=== PATIENT | male | born 1955 | race Caucasian/White ===

== ENCOUNTER 2020-07-21 10:02 | Emergency (ER) | payer MEDICAID ==
--- OUTSIDE RECORDS SUMMARY | 2020-07-21 10:20 | XMS REPORT ---
:1955 Author Organization eClinicalWorks Care Team Providers Name Role Phone Meg Ramirez Provider Role Unavailable Allergies, Adverse Reactions, Alerts Substance Reaction Event Type N.K.D.A. 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 Active unspecified part of left lower leg with unspecified severity Problem Type 2 diabetes mellitus with foot E11.621 Active ulcer Problem Unsteady gait R26.81 Active Problem Primary insomnia F51.01 Active Problem Non-pressure chronic ulcer of L97.509 Active other part of unspecified foot with unspecified severity Assessment 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 Assessment 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 Active unspecified part of left lower leg with unspecified severity Problem Gastroesophageal reflux disease K21.9 Active without esophagitis Assessment Skin tear of right lower leg S81.811A Active without complication, initial encounter Problem 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 Assessment Type 2 diabetes mellitus with E11.51 Active diabetic peripheral angiopathy without gangrene, without long-term current use of insulin Problem Amputation of left lower extremity Z89.512 Active below knee Medications Medication Code Code Instructions Start End Status Dosage System Date Date Clonazepam [facility] 83041066140 1MG Orally PRN Active 1 - 2 anxiety daily tablet Nateglinide ND 54049232571 60 MG Orally Active 1 t ablet Three times a before day meals True Metrix [facility] 14443594916 - Active USE 1 Blood Glucose STRIP TO Test CHECK GLUCOSE TWICE DAILY GlyBURIDE [facility] 83855080628 5 MG Orally tid Active 1 tablet with meal Yvonneyze XR [facility] 86931172641 5-500 MG Orally Active take 1 Once a day tablet by mouth in the evening with meals Amoxicillin-Pot [facility] 15007182205 1000-62.5 MG March 06, Active 1 tablet Clavulanate ER Orally every 12 2020 hrs Actos [facility] 29543796666 30 MG Orally Active 1 table t Once a day Results No Known Results Summary Purpose eClinicalWorks Submission
--- OUTSIDE RECORDS SUMMARY | 2020-07-21 10:20 | XMS REPORT | Continuity of Care Document ---
:[address] [facility] t Address [address] [place] [address] Care Team Providers Name Role Phone Unavailable Unavailable Unavailable Problems This patient has no known problems. Allergies, Adverse Reactions, Alerts This patient has no known allergies or adverse reactions. Medications Ordered Filled Start Stop Current Ordering Indication Dosage Frequency Signature Comments Components Source Medication Medication Date Date Medication? Clinician (SIG) Name Name Clonazepam Clonazepam Yes Meg 1 - [address] [place] tablet [facility] Kombiglyze Kombiglyze Yes Meg take [address] [facility] XR XR [place] tablet by [facility] - mouth in [facility] the l evening Outpati with meals ent Clinics True Metrix True Metrix Yes Meg USE [address] [facility] Blood Blood [place] STRIP TO [facility] - Glucose Glucose CHECK [facility] Test Test GLUCOSE l TWICE Outpati DAILY ent Clinics Nateglinide Nateglinide Yes Meg [address] [facility] [place] before [facility] - meals [facility] GlyBURIDE GlyBURIDE Yes Meg [address] [facility] [place] with meal kes - [facility] Pioglitazon Pioglitazon Yes Meg Take [address] [facility] e HCl e HCl [place] tablet by [facility] mouth [facility] Procedures This patient has no known procedures. Encounters Start End Encounter Admission Attending Care Care Encounter Source Date/Time Date/Time Type Type Clinicians Facility Department ID 2020-06-30 2020-06-30 Outpatient [facility] [id number] 2020-06-27 2020-06-[address] [facility] [id number] [facility] 2020-06-13 2020-06-13 [facility] [id number] [facility] 11[facility] 11:00:00 [facility] [employer] [address] [facility] Medicine l Medicine Outpati ent Clinics 2020-06-10 2020-06-10 [facility] [id number] [address] 09[facility]00 09:00:00 [facility] Medicine Outpati ent Clinics 2020-06-10 2020-06-10 [facility] [id number] 09[facility]00[facility]00 09:00:00 [facility] Medicine Outpati ent Clinics 2020-05-27 2020-05-27 [facility] [id number] [address] 08:40:00 08:40:00 t [facility] Medicine Outpati ent Clinics 2020-05-02 2020-05-02 [facility] [id number] [address] 15:19:00 15:19:00 t [facility] Medicine Outpati ent Clinics 2020-05-01 2020-05-01 [facility] [id number] 14:00:00 14:00:00 t [facility] Medicine l Medicine Outpati ent Clinics 2020-03-06 2020-03-06 [facility] [id number] [address] 14:00:00 14:00:00 t [facility] Medicine Outpati ent Clinics 2020-02-06 2020-02-06 [facility] [id number] [address] 18:58:00 18:58:00 t [facility] Medicine Outpati ent Clinics 2020-01-31 2020-01-31 [facility] [id number] 13:00:00 13:00:00 t [facility] Medicine Outpati ent Clinics 2020-01-22 2020-01-22 [facility] [id number] 10[facility]20:00 10:20:00 t [facility] Medicine Outpati ent Clinics 2020-01-14 2020-01-14 [facility] [id number] 13:00:00 13:00:00 t [facility] Medicine Outpati ent Clinics 2019-12-31 2019-12-31 [facility] [id number] 13[facility]20:00 13:20:00 t [facility] Medicine Outpati ent Clinics 2019-12-24 2019-12-24 [facility] [id number] 14:40:00 14:40:00 [facility] Medicine Outpati ent Clinics 2019-11-07 2019-11-07 [facility] [id number] 09:27:00 09:27:00 t [facility] Medicine Medicine Outpati ent Clinics 2019-10-23 2019-10-23 [facility] [id number] 10[facility]20:00 10:20:00 t [facility] Medicine Outpati ent Clinics 2019-10-10 2019-10-10 [facility] [id number] 17[facility]03:00 17:03:00 t [facility] Medicine Outpati ent Clinics 2019-10-01 2019-10-01 [facility] [id number] 11:15:00 11:15:00 t [facility] Medicine Outpati ent Clinics 2019-09-13 2019-09-13 [facility] [id number] 10:01:00 10:01:00 [facility] Medicine Outpati ent Clinics 2019-07-23 2019-07-23 [facility] [id number] 10:20:00 10:20:00 t [facility] Medicine Medicine Outpati ent Clinics 2019-07-16 2019-07-16 [facility] [id number] 08:04:00 08:04:00 t [facility] Medicine Outpati ent Clinics 2019-07-10 2019-07-10 [facility] [id number] 13:39:[facility] 13:39:[address] [place] [address] [facility] Medicine l Medicine Outpati ent Clinics 2019-04-23 2019-04-23 [facility] [id number] 09:00:00 09:00:00 t [facility] Medicine Outpati ent Clinics 2019-03-14 2019-03-14 [facility] [id number] 10:20:00 10:20:00 t [facility] Medicine Outpati ent Clinics 2019-02-05 2019-02-05 [facility] [id number] 09:58:00 09:58:00 t [facility] Medicine Medicine Outpati ent Clinics 2019-01-29 2019-01-29 [facility] [id number] 11:31:00 11:31:00 t [facility] Medicine Outpati ent Clinics 2019-01-10 2019-01-10 [facility] [id number] 15[facility]00:00 15:00:00 t [facility] Medicine Medicine Outpati ent Clinics 2019-01-02 2019-01-02 [facility] [id number] 09[facility]40:00 09:40:00 t [facility] Medicine Outpati ent Clinics 2018-12-18 2018-12-18 [facility] [id number] 17[facility]51:00 17:51:00 t [facility] Medicine Outpati ent Clinics 2018-12-18 2018-12-18 [facility] [id number] 10:44:00 10:44:00 t [facility] Medicine Outpati ent Clinics 2018-12-12 2018-12-12 [facility] [id number] [facility] 16:00:00 16:00:00 t [facility] Medicine Outpati ent Clinics 2018-11-28 2018-11-28 [facility] [id number] 16:05:00 16:05:00 t [facility] Medicine Medicine Outpati ent Clinics 2018-11-21 2018-11-21 [facility] [id number] 09:30:00 09:30:00 t [facility] Medicine Outpati ent Clinics 2018-10-24 2018-10-24 [facility] [id number] 09:30:00 09:30:00 t [facility] Medicine Outpati ent Clinics 2018-09-18 2018-09-18 [facility] [id number] 17:24:00 17:24:00 t [facility] Medicine Outpati ent Clinics 2018-09-18 2018-09-18 [facility] [id number] [facility] 17:20:00 17:20:00 t [facility] Medicine Medicine Outpati ent Clinics 2018-07-03 2018-07-03 [facility] [id number] [facility] 11:17:00 11:17:00 t [facility] Medicine Medicine Outpati ent Clinics 2018-06-29 2018-06-29 [facility] [id number] 12:13:00 12:13:00 t [facility] Medicine Outpati ent Clinics 2018-06-26 2018-06-26 [facility] [id number] [facility] 13:00:00 13:00:00 t [facility] Medicine Outpati ent Clinics 2018-05-17 2018-05-17 Outpatient Aida Braxton [id number] [facility] 09:56:00 09:56:00 [facility] ent [facility] 2018-04-11 2018-04-11 Outpatient Aida Braxton [id number] 11:00:00 11:00:00 [facility] ent Clinics Results This patient has no known results.
--- OUTSIDE RECORDS SUMMARY | 2020-07-21 10:21 | XMS REPORT ---
[...] part of unspecified foot with unspecified severity Problem Gastroesophageal reflux disease K21.9 Active without esophagitis Problem 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 Assessment Medicare annual wellness visit, Z00.00 Active subsequent Problem Amputation of left lower extremity Z89.512 Active below knee Medications Medication Code Code Instructions Start End Status Dosage System Date Date Nateglinide [facility] 14536009086 60 MG Orally Active 1 t ablet Three times a before day meals Kombiglyze XR ND 38802962301 5-500 MG Orally Active take 1 Once a day tablet by mouth in the evening with meals GlyBURIDE ND 10227606019 5 MG Orally tid Active 1 tablet with meal True Metrix [facility] 24453710283 - Active USE 1 ST RIP Blood Glucose TO CHECK Test GLUCOSE TWICE DAILY Clonazepam ND 78232066791 1MG Orally PRN Active 1 - 2 anxiety daily tablet Clindamycin HCl ND 12491292937 300 MG Orally Active 2 capsules every 8 hrs Pioglitazone HCl [facility] 16208682527 30 MG Active Judson e 1 tablet by mouth once daily Actos NDC 21613465139 30 MG Orally Active 1 table t Once a day Results No Known Results Summary Purpose eClinicalWorks Submission
--- OUTSIDE RECORDS SUMMARY | 2020-07-21 10:21 | XMS REPORT ---
:1955 Author Organization [facility] Address [address] [facility] [place] [address] Care Team Providers Name Role Phone James Unavailable [phone] PROBLEMS Type Condition ICD9-CM [id number] Onset Condition SNOMED Code Notes Code Code Dates Status Problem Gastroesophageal K21.9 Active 522666178 reflux disease without esophagitis Problem Amputation of left Z89.512 Active 073520487 lower extremity below knee Problem Other complications T87.89 Active 52817774 of amputation stump Problem Unsteady gait R26.81 Active 62301839 Problem Non-pressure L97.509 Active 463688714 chronic ulcer of other part of unspecified foot with unspecified severity Problem Primary insomnia F51.01 Active 4885857 Problem Chronic kidney N18.3 Active 935739466 disease, stage 3 (moderate) Problem Anxiety, F41.1 Active 91789176 generalized Problem Type 2 diabetes E11.22 Active 62229612 mellitus with diabetic chronic kidney disease Problem Mixed hearing loss H90.8 Active 09014978 Problem Type 2 diabetes E11.9 Active 718260500 mellitus without complications Problem Non-pressure L97.929 Active 28510314 chronic ulcer of unspecified part of left lower leg with unspecified severity Problem Type 2 diabetes E11.36 Active 00027099 mellitus with diabetic cataract, without long-term current use of insulin Problem Type 2 diabetes E11.65 Active 05081498 mellitus with hyperglycemia, without long-term current use of insulin ALLERGIES No Known Allergies ENCOUNTERS from 1955 to 2020-06-27 Encounter Location Date Provider Diagnosis [facility] [address] [facility] [address], [place] [address] IMMUNIZATIONS Vaccine Route Administration Date Status Flucelvax - multidose vial Unknown Jul 25, 2018 Rell ng Flucelvax - single dose syringe IM Intramuscular Jun 12, 2020 Administered Twinrix IM Intramuscular April 17, 2019 Administered Pneumovax (PPSV23) IM Intramuscular April 23, 2020 Administered Prevnar 13 -Pneumonia Vaccine IM Intramuscular April 17, 2019 A dministered SOCIAL HISTORY Tobacco Use: Social History Observation Description Date Details (start date - stop date) Never Smoker Sex Assigned At : Social History Observation Description Sex Assigned At Unknown PHQ9 Question Answer Notes Little interest or pleasure in doing things Not at all Feeling down, depressed, or hopeless Nearly every day Trouble falling or staying asleep or sleeping too much Not a t all Feeling tired or having little energy Not at all Poor appetite or overeating Not at all Feeling bad about yourself, or that you are a failure, or No t at all have let yourself or your family down Trouble concentrating on things, such as reading the Not at all newspaper or watching television Moving or speaking so slowly that other people could have No t at all noticed; or the opposite, being so fidgety or restless that you have been moving around a lot more than usual Total Score 3 Interpretation Minimal Depression Thoughts that you would be better off or of hurting Not at all yourself in some way Alcohol Screen Question Answer Notes Did you have a drink containing alcohol in the past year? No Points 0 Interpretation Negative Tobacco Use/Smoking Question Answer Notes Are you a never smoker REASON FOR REFERRAL No Information VITAL SIGNS No information MEDICATIONS Medication SIG (Take, Route, Frequency, Start Date End Date Status Duration) Nateglinide 60 MG 1 tablet before meals Orally Active Three times a day for 90 True Metrix Blood Glucose Test USE 1 STRIP TO CHECK GLUCOSE Active - TWICE DAILY for 25 Kombiglyze XR 5-500 MG take 1 tablet by mouth in Active the evening with meals Orally Once a day for 90 days GlyBURIDE 5 MG 1 tablet with meal Orally Active tid for 90 Clonazepam 1MG 1 - 2 tablet Orally PRN Ac tive anxiety daily for 30 Pioglitazone HCl 30 MG Take 1 tablet by mouth once Active daily for 90 PROCEDURES No Information RESULTS No Results REASON FOR VISIT Other MEDICAL (GENERAL) HISTORY Type Description Date Medical History Anxiety, generalized Medical History Mixed hearing loss Medical History Amputation of left lower extremity below knee Medical History Type 2 diabetes mellitus with foot ulcer Medical History Skin tear of right lower leg without com plication, initial encounter Surgical History Below knee amputation Left 2018 Surgical History Foot ulcer debridement on both feet 2016 -2016 Hospitalization History 1 month at [facility] for recovery of BKA. 2018 Goals Section No Information Health Concerns No Information MEDICAL EQUIPMENT No Information MENTAL STATUS No Information FUNCTIONAL STATUS No Information ASSESSMENTS No Information PLAN OF TREATMENT Next Appt Details Provider Name:Meg Ramirez, 2020-06-30 11 :20:00 AM, [address] [facility], [place], [address], Insurance Providers Payer Name Payer Payer Insured Patient Coverage Coverage Address Phone Name Relationship to Start Date End Date Insured [place] [phone] Keith Rosenberg [address] [facility] [address] MEDICAID [phone] Keith Rosenberg 2019 [id number] [address] [facility] [id number]
--- OUTSIDE RECORDS SUMMARY | 2020-07-21 10:21 | XMS REPORT ---
:[address] [facility] Address [address] [facility] [place] [address] Care Team Providers Name Role Phone James Unavailable [phone] PROBLEMS Type Condition ICD9-CM [id number] Onset Condition SNOMED Code Notes Code Code Dates Status Problem Other complications T87.89 Active 21138290 of amputation stump Problem Gastroesophageal K21.9 Active 568163785 reflux disease without esophagitis Problem Mixed hearing loss H90.8 Active 47605140 Problem Amputation of left Z89.512 Active 023177761 lower extremity below knee Problem Non-pressure L97.509 Active 859411943 chronic ulcer of other part of unspecified foot with unspecified severity Problem Primary insomnia F51.01 Active 1886429 Problem Type 2 diabetes E11.9 Active 471775376 mellitus without complications Problem Type 2 diabetes E11.65 Active 42173409 mellitus with hyperglycemia, without long-term current use of insulin Problem Unsteady gait R26.81 Active 63258397 Problem Abrasions of T07.XXXA Active 307929265 multiple sites Problem Anxiety, F41.1 Active 96170931 generalized Problem Non-pressure L97.929 Active 81898188 chronic ulcer of unspecified part of left lower leg with unspecified severity Problem Chronic kidney N18.3 Active 208768900 disease, stage 3 (moderate) Problem Type 2 diabetes E11.22 Active 14605041 mellitus with diabetic chronic kidney disease Problem Type 2 diabetes E11.36 Active 47132639 mellitus with diabetic cataract, without long-term current use of insulin ALLERGIES No Known Allergies ENCOUNTERS from 1955 to 2020-07-03 Encounter Location Date Provider Diagnosis [facility] [address] [facility] [address] Jun, Meg Ramirez Type 2 diabetes [facility] [place] mellitus [place] [address] hyperglycemia, without long-te rm current use of insulin E11.65 ; Amputation of l eft lower extremity below knee Z89. 512 and Abrasions o f multiple sites T07.XXXA IMMUNIZATIONS Vaccine Route Administration Date Status Flucelvax - multidose vial Unknown Jul 25, 2018 Pendi ng Flucelvax - single dose syringe IM [...] REASON FOR REFERRAL No Information VITAL SIGNS Height 73.5 in Jun, Weight 208.6 lbs Jun, Temperature 98.1 degrees Fahrenheit Jun, BMI 27.15 kg/m2 Jun, Oximetry 98 % Jun, Respiratory Rate 16 /min Jun, Blood pressure systolic 136 mm Hg Jun, Blood pressure diastolic 78 mm Hg Jun, MEDICATIONS Medication SIG (Take, Route, Start Date End Date Status Frequency, Duration) True Metrix Blood Glucose USE 1 STRIP TO CHECK Active Test - GLUCOSE TWICE DAILY for 25 Pioglitazone HCl 30 MG Take 1 tablet by mouth Active once daily for 90 Nateglinide 60 MG 1 tablet before meals A ctive Orally Three times a day for 90 GlyBURIDE 5 MG 1 tablet with meal Orally Active tid for 90 Mupirocin 2 % 1 application Externally Jun, Jul, Ac tive Three times a day for 5 day(s) Clonazepam 1MG 1 - 2 tablet Orally PRN Ac tive anxiety daily for 23 Kombiglyze XR 5-500 MG take 1 tablet by mouth in Active the evening with meals Orally Once a day for 90 days PROCEDURES No Information RESULTS Component Value Reference Range HEMOGLOBIN A1C Reviewed date:06/30/2020 12:07:09 Interpretation: Performing Lab: A1C 7.9 REASON FOR VISIT Wound (IN LOBBY) MEDICAL (GENERAL) HISTORY Type Description Date Medical History Anxiety, generalized Medical History Mixed hearing loss Medical History Amputation of left lower extremity below knee Medical History Type 2 diabetes mellitus with foot ulcer Medical History Skin tear of right lower leg without com plication, initial encounter Surgical History Below knee amputation Left 2018 Surgical History Foot ulcer debridement on both feet 2015 -2016 Hospitalization History 1 month at [facility] for recovery of BKA. 2018 Goals Section No Information Health Concerns No Information MEDICAL EQUIPMENT No Information MENTAL STATUS No Information FUNCTIONAL STATUS No Information ASSESSMENTS Encounter Date Diagnosis Notes Jun, Type 2 diabetes mellitus with hyperglyce [place], without long-term current use of insulin (ICD-10 - E11.65) Jun, Abrasions of multiple sites (ICD-10 - T0 7.XXXA) Jun, Amputation of left lower extremity below knee (ICD-10 - Z89.512) PLAN OF TREATMENT Medication Medication Name Sig Start Date Stop Date GlyBURIDE 5 MG 1 tablet with meal Orally tid for 90 Mupirocin 2 % 1 application Externally Three times a day 2019Jul, for 5 day(s) Nateglinide 60 MG 1 tablet before meals Orally Three times a day for 90 Treatment Notes Assessment Notes Clinical Notes Type 2 diabetes mellitus with meds as directedcheck glucose daily hyperglycemia, without long-term current use of insulin Amputation of left lower extremity call prosthesis [place] a gain about below knee ill fitting prosthesistry to wear sock under sleeve, Abrasions of multiple sites clean daily with soap and watera pply mupirocin oint to abrasions daily until abrasion gone Next Appt Details 3 Months Reason: Insurance Providers Payer Name Payer Payer Insured Patient Coverage Coverage Address Phone Name Relationship to Start Date End Date Insured [place] [phone] Keith Rosenberg [address] [facility] [address] MEDICAID [phone] Keith Rosenberg 2019 [id number] [facility] [id number]
--- OUTSIDE RECORDS SUMMARY | 2020-07-21 10:21 | XMS REPORT ---
:1955 Author Organization [employer] Care Team Providers Name Role Phone Meg Ramirez Provider Role Unavailable Allergies No Known Allergies Problems Problem Type Condition Code Onset Dates Condition Statu s Problem Type 2 diabetes mellitus with E11.51 Active diabetic peripheral angiopathy without gangrene, without long-term current use of insulin Problem Anxiety, generalized F41.1 Active Problem Mixed hearing loss H90.8 Active Problem Gastroesophageal reflux disease K21.9 Active without esophagitis Problem 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 Problem Amputation of left lower extremity Z89.512 Active below knee Problem Skin tear of right lower leg [...] part of unspecified foot with unspecified severity Medications No Known Medications Results No Known Results Summary Purpose [employer] Submission
--- OUTSIDE RECORDS SUMMARY | 2020-07-21 10:21 | XMS REPORT ---
:1955 Author Organization [employer] Care Team Providers Name Role Phone Meg Ramirez Provider Role Unavailable Allergies No Known Allergies Problems Problem Type Condition Code Onset Dates Condition Statu s Problem Anxiety, generalized F41.1 Active Problem Non-pressure chronic ulcer of other L97.509 Active part of unspecified foot with unspecified severity Problem Unsteady gait R26.81 Active Problem Gastroesophageal reflux disease K21.9 Active without esophagitis Problem 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 Problem Amputation of left lower extremity Z89.512 Active below knee Problem Mixed hearing loss H90.8 Active Problem Chronic kidney disease, stage 3 N18.3 Active (moderate) Problem Type 2 diabetes mellitus with E11.65 Active hyperglycemia, without long-term current use of insulin Problem Type 2 diabetes mellitus with E11.22 Active diabetic chronic kidney disease Problem Type 2 diabetes mellitus without E11.9 Active complications Problem Primary insomnia F51.01 Active Problem Type 2 diabetes mellitus with E11.36 Active diabetic cataract, without long-term current use of insulin Problem 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
--- OUTSIDE RECORDS SUMMARY | 2020-07-21 10:21 | XMS REPORT ---
[...] complications of amputation T87.89 Active stump Assessment Abrasion, left lower leg, initial S80.812A Active encounter Problem Amputation of left lower extremity Z89.512 Active below knee Medications Medication Code Code Instructions Start End Status Dosage System Date Date Clindamycin HCl [facility] 12699400084 300 MG Orally Active 2 capsules every 8 hrs Pioglitazone HCl [facility] 58436863671 30 MG Active Judson e 1 tablet by mouth once daily Gly[place] ND 71167149337 5 MG Orally tid Active 1 tablet with meal Kombiglyze XR ND 32262678360 5-500 MG Orally Active take 1 Once a day tablet by mouth in the evening with meals Actos ND 60303197129 30 MG Orally Active 1 table t Once a day True Metrix [facility] 32717838766 - Active USE 1 ST RIP Blood Glucose TO CHECK Test GLUCOSE TWICE DAILY Clonazepam ND 89289983458 1MG Orally PRN Active 1 - 2 anxiety daily tablet Nateglinide [facility] 55576140909 60 MG Orally Active 1 t ablet Three times a before day meals Results No Known Results Summary Purpose [employer]ClinicalWorks Submission
--- OUTSIDE RECORDS SUMMARY | 2020-07-21 10:21 | XMS REPORT ---
[...] severity Problem Unsteady gait R26.81 Active Problem Chronic kidney disease, stage 3 [...] of left lower leg with unspecified severity Assessment Type 2 diabetes mellitus with E11.22 Active diabetic chronic kidney disease Assessment Type 2 diabetes mellitus with E11.36 Active diabetic cataract, without long-term current use of insulin Assessment Type 2 diabetes mellitus with E11.65 Active hyperglycemia, without long-term current use of insulin Assessment Chronic kidney disease, stage 3 N18.3 Active (moderate) Problem Gastroesophageal reflux disease K21.9 Active without esophagitis Problem 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 Assessment Amputation of left lower extremity Z89.512 Active below knee Problem Amputation of left lower extremity Z89.512 Active below knee Problem Mixed hearing loss H90.8 Active Medications Medication Code Code Instructions Start End Status Dosage System Date Date Pioglitazone HCl ND 85893378776 30 MG Active Judson e 1 tablet by mouth once daily Gly[place] ND 88514256212 5 MG Orally tid Active 1 tablet with meal Kombiglyze XR ND 42436726537 5-500 MG Orally Active take 1 Once a day tablet by mouth in the evening with meals True Metrix ND 39471593556 - Active USE 1 Blood Glucose STRIP TO Test CHECK GLUCOSE TWICE DAILY Nateglinide [facility] 54118163966 60 MG Orally Active 1 t ablet Three times a before day meals Clonazepam [facility] 76783778146 1MG Orally PRN Active 1 - 2 anxiety daily tablet Results No Known Results Summary Purpose [employer]ClinicalWorks Submission
[2020-07-21] MEDS ORDERED: NA CHLORIDE 0.9% 500 ML ONE ×3 (11:06→13:58)
[2020-07-21 11:07] LABS: Absolute Lymphocytes (CBC) 0.4 K/uL (0.7-4.9); Basophils % 0.2 % (0-1.3); Hematocrit 34.9 % (39.6-49.0); Lymphocytes % 4.3 % (15.3-44.8); MPV 9.3 fL (7.6-11.3); RBC Red Blood Cell Count 3.88 M/uL (4.33-5.43)
--- NOTE | 2020-07-21 11:38 | RAD REPORT ---
EXAM DESCRIPTION: CT - Abdomen Pelvis W Contrast - 07/21/2020 11:08 am CLINICAL HISTORY: Abdominal pain COMPARISON: none. TECHNIQUE: Computed axial tomography of the abdomen pelvis was obtained. 100 cc Isovue-300 was admin istered intravenously. Oral contrast was not requested which limits evaluation of bowel. All CT scans are performed using dose optimization technique as appropriate and may include automated exposure control or mA/KV adjustment according to patient size. FINDINGS: Some of images are degraded by motion artifact Mild fatty liver Spleen, pancreas, adrenal and kidneys appear unremarkable. There is no evidence of diverticulitis. Small densities the gallbladder probably stones. Gallbladder wall is not thickened Moderate amount of stool throughout the colon. Small to moderate hiatal hernia. Mild chronic appearin g left lower lobe opacities. Spondylosis involves lumbar spine resulting in spinal stenosis. Small bilateral inguinal hernias IMPRESSION: Probable cholelithiasis without evidence cholecystitis Moderate amount of stool throughout the colon
[2020-07-21 11:42] LABS: Albumin 3.3 g/dL (3.4-5.0); Bilirubin Direct 0.3 mg/dL (0-0.2); Bilirubin Total 0.7 mg/dL (0.2-1.0); Potassium 4.3 mmol/L (3.5-5.1); Protein, Total 7.8 g/dL (6.4-8.2)
[2020-07-21 11:48] LABS: Blood Morphology Comment NOT SEEN (NOT SEEN); Platelet Estimate ADEQ; White Blood Cell Scan OK (OK)
[2020-07-21] MEDS ORDERED: INSULIN -REGULAR HUMAN 50 UNIT/0.5 ML ML ONE ×2 (12:07→13:58)
[2020-07-21 12:10] LABS: Urine Blood NEGATIVE (NEG); Urine Glucose 3+ (NEG); Urine Protein NEGATIVE (NEG); Urine Specific Gravity <1.005 (1.005-1.030); Urine pH 5.5 (5.0-7.0)
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
[2020-07-21] MEDS ORDERED: ACETAMINOPHEN 325 MG TABLET ONE (15:16)
[2020-07-21 17:32] VITALS: TEMP 98.5
[2020-07-21 17:42] VITALS: O2SAT 100
[2020-07-21 17:43] VITALS: BP 145/93
== END 2020-07-21 15:37 | disposition home or self-care (01) ==
LOC: ER 10:02
DX: K80.20 Calculus of gallbladder without cholecystitis without obstruction (principal); E11.65 Type 2 diabetes mellitus with hyperglycemia; K59.00 Constipation, unspecified; J02.9 Acute pharyngitis, unspecified; I10 Essential (primary) hypertension; Z88.4 Allergy status to anesthetic agent
CPT/HCPCS: 87070; 85025; 80048; 36415; 82947 ×4; 82565; 80076; 87081; 81003; 83690; 87804 ×2; 74177; 99284; Q9967; J7040 ×3

== ENCOUNTER 2020-07-24 12:42 | Emergency (ER) | payer MEDICAID, OTHER ==
--- OUTSIDE RECORDS SUMMARY | 2020-07-24 14:42 | XMS REPORT | Continuity of Care Document ---
:1955 Author Organization [facility] t Address [address] [place] [address] Care Team Providers Name Role Phone Unavailable Unavailable Unavailable Problems This patient has no known problems. Allergies, Adverse Reactions, Alerts This patient has no known allergies or adverse reactions. Medications Ordered Filled Start Stop Current Ordering Indication Dosage Frequency Signature Comments Components Source Medication Medication Date Date Medication? Clinician (SIG) Name Name Clonazepam Clonazepam Yes Meg 1 - [address] [place] tablet [facility] Kombiglyze Kombiglyze Yes Meg take [address] [facility] XR XR [place] tablet by [facility] - mouth in [facility] the l evening Outpati with meals ent Clinics True Metrix True Metrix Yes Meg USE [address] [facility] Blood Blood [place] STRIP TO [facility] - Glucose Glucose CHECK [facility] Test Test GLUCOSE l TWICE Outpati DAILY ent Clinics Nateglinide Nateglinide Yes Meg [address] [facility] [place] before [facility] - meals [facility] l [facility] GlyBURIDE GlyBURIDE Yes Meg [address] [facility] [place] with meal kes - [facility] l [facility] Pioglitazon Pioglitazon Yes Meg Take [address] [facility] e HCl e HCl [place] [facility] Procedures This patient has no known procedures. Encounters Start End Encounter Admission Attending Care Care Encounter Source Date/Time Date/Time Type Type Clinicians Facility Department ID 2020-06-30 2020-06-[id number] 2020-06-27 2020-06-27 Outpatient [facility] [id number] [facility] 2020-06-13 2020-06-13 [facility] [id number] [facility] 11[facility] 11:00:[address] [facility] Medicine l Medicine Outpati ent Clinics 2020-06-10 2020-06-10 [facility] [id number] 09:00[facility]00 09:00:00 t [facility] Medicine Outpati ent Clinics 2020-06-10 2020-06-10 [facility] [id number] 09[facility]00:00 09:00:00 t [facility] Medicine Outpati ent Clinics 2020-05-27 2020-05-27 [facility] [id number] [facility] 08:40:00 08:40:00 t [facility] Medicine Outpati ent Clinics 2020-05-02 2020-05-02 [facility] [id number] [address] 15:19:00 15:19:00 t [facility] Medicine Outpati ent Clinics 2020-05-01 2020-05-01 [facility] [id number] 14[facility]00:00 14:00:00 t [facility] Medicine l Medicine Outpati ent Clinics 2020-03-06 2020-03-06 [facility] [id number] [facility] 14:00:00 14:00:00 t [facility] Medicine Outpati ent Clinics 2020-02-06 2020-02-06 [facility] [id number] [facility] 18:58:00 18:58:00 t [facility] Medicine Outpati ent Clinics 2020-01-31 2020-01-31 [facility] [id number] 13[facility]00:00 13:00:00 t [facility] Medicine Outpati ent Clinics 2020-01-22 2020-01-22 [facility] [id number] [facility] 10:20:00 10:20:00 t [facility] Medicine Outpati ent Clinics 2020-01-14 2020-01-14 [facility] [id number] [facility] 13:00:00 13:00:00 t [facility] Medicine Outpati ent Clinics 2019-12-31 2019-12-31 [facility] [id number] [facility] 13[facility]20:00 13:20:00 t [facility] Medicine Outpati ent Clinics 2019-12-24 2019-12-24 [facility] [id number] [address] 14:40:00 14:40:00 [facility] Medicine Outpati ent Clinics 2019-11-07 2019-11-07 [facility] [id number] [address] 09:27:00 09:27:00 t [facility] Medicine Medicine Outpati ent Clinics 2019-10-23 2019-10-23 [facility] [id number] [address] 10:20:00 10:20:00 t [facility] Medicine Outpati ent Clinics 2019-10-10 2019-10-10 [facility] [id number] 17[facility]03:00 17:03:00 t [facility] Medicine Outpati ent Clinics 2019-10-01 2019-10-01 [facility] [id number] 11:15:00 11:15:00 t [facility] Medicine Outpati ent Clinics 2019-09-13 2019-09-13 [facility] [id number] [address] 10:01:00 10:01:00 [facility] Medicine Outpati ent Clinics 2019-07-23 2019-07-23 [facility] [id number] 10:20:00 10:20:00 t [facility] Medicine Medicine Outpati ent Clinics 2019-07-16 2019-07-16 [facility] [id number] 08:04:00 08:04:00 t [facility] Medicine Outpati ent Clinics 2019-07-10 2019-07-10 [facility] [id number] 13:39:00 13:39:[address] [facility] Medicine l Medicine Outpati ent Clinics 2019-04-23 2019-04-23 [facility] [id number] 09:00:00 09:00:00 t [facility] Medicine Outpati ent Clinics 2019-03-14 2019-03-14 [facility] [id number] 10[facility]20:00 10:20:00 t [facility] Medicine Outpati ent Clinics 2019-02-05 2019-02-05 [facility] [id number] 09:58:00 09:58:00 t [facility] Medicine Medicine Outpati ent Clinics 2019-01-29 2019-01-29 [facility] [id number] 11:31:00 11:31:00 t [facility] Medicine Outpati ent Clinics 2019-01-10 2019-01-10 [facility] [id number] 15:00:00 15:00:00 t [facility] Medicine Medicine Outpati ent Clinics 2019-01-02 2019-01-02 [facility] [id number] 09:40:00 09:40:00 t [facility] Medicine Outpati ent Clinics 2018-12-18 2018-12-18 [facility] [id number] 17:51:00 17:51:00 t [facility] Medicine Outpati ent Clinics 2018-12-18 2018-12-18 [facility] [id number] 10:44:00 10:44:00 t [facility] Medicine Outpati ent Clinics 2018-12-12 2018-12-12 [facility] [id number] [facility] 16:00:00 16:00:00 t [facility] Medicine Outpati ent Clinics 2018-11-28 2018-11-28 [facility] [id number] 16:05:00 16:05:00 t [facility] Medicine Medicine Outpati ent Clinics 2018-11-21 2018-11-21 [facility] [id number] 09:30:00 09:30:00 t [facility] Medicine Outpati ent Clinics 2018-10-24 2018-10-24 [facility] [id number] [facility] 09:30:00 09:30:00 t [facility] Medicine Outpati ent Clinics 2018-09-18 2018-09-18 [facility] [id number] 17:24:00 17:24:00 t [facility] Medicine Outpati ent Clinics 2018-09-18 2018-09-18 [facility] [id number] [address] 17:20:00 17:20:00 t [facility] Medicine Medicine Outpati ent Clinics 2018-07-03 2018-07-03 [facility] [id number] 11:17:00 11:17:00 t [facility] Medicine Medicine Outpati ent Clinics 2018-06-29 2018-06-29 [facility] [id number] 12:13:00 12:13:00 t [facility] Medicine Outpati ent Clinics 2018-06-26 2018-06-26 [facility] [id number] 13:00:00 13:00:00 t [facility] Medicine Outpati ent Clinics 2018-05-17 2018-05-17 Outpatient Aida Braxton [id number] [facility] 09:56:00 09:56:00 [facility] 2018-04-11 2018-04-11 Outpatient Aida Braxton [id number] [facility] 11:00:00 11:00:00 [facility] ent Clinics Results This patient has no known results.
--- OUTSIDE RECORDS SUMMARY | 2020-07-24 14:42 | XMS REPORT ---
[...] Status Dosage System Date Date Clindamycin HCl [facility] 10869155792 300 MG Orally Active 2 capsules every 8 hrs Pioglitazone HCl [facility] 55164904553 30 MG Active Judson e 1 tablet by mouth once daily GlyBURIDE ND 02606711241 5 MG Orally tid Active 1 tablet with meal Kombiglyze XR ND 73670532033 5-500 MG Orally Active take 1 Once a day tablet by mouth in the evening with meals Actos ND 39134052675 30 MG Orally Active 1 table t Once a day True Metrix [facility] 93908966515 - Active USE [address] [facility] Blood Glucose TO CHECK Test GLUCOSE TWICE DAILY Clonazepam ND 91013191925 1MG Orally PRN Active 1 - 2 anxiety daily tablet Nateglinide [facility] 84218101863 60 MG Orally Active 1 t ablet Three times a before day meals Results No Known Results Summary Purpose eClinicalWorks Submission
--- OUTSIDE RECORDS SUMMARY | 2020-07-24 14:42 | XMS REPORT ---
:1955 Author Organization [facility] Address [address] [place] [address] Care Team Providers Name Role Phone James Unavailable [phone] PROBLEMS Type Condition ICD9-CM [id number] Onset Condition SNOMED Code Notes Code Code Dates Status Problem Gastroesophageal K21.9 Active 931429214 reflux disease without esophagitis Problem Amputation of left Z89.512 Active 503929124 lower extremity below knee Problem Other complications T87.89 Active 00865231 of amputation stump Problem Unsteady gait R26.81 Active 95432438 Problem Non-pressure L97.509 Active 731274501 chronic ulcer of other part of unspecified foot with unspecified severity Problem Primary insomnia F51.01 Active 9062328 Problem Chronic kidney N18.3 Active 407884727 disease, stage 3 (moderate) Problem Anxiety, F41.1 Active 15693003 generalized Problem Type 2 diabetes E11.22 Active 72417099 mellitus with diabetic chronic kidney disease Problem Mixed hearing loss H90.8 Active 09958417 Problem Type 2 diabetes E11.9 Active 088857043 mellitus without complications Problem Non-pressure L97.929 Active 83348774 chronic ulcer of unspecified part of left lower leg with unspecified severity Problem Type 2 diabetes E11.36 Active 76845762 mellitus with diabetic cataract, without long-term current use of insulin Problem Type 2 diabetes E11.65 Active 70317500 mellitus with hyperglycemia, without long-term current use of insulin ALLERGIES No Known Allergies ENCOUNTERS from 1955 to 2020-06-27 Encounter Location Date Provider Diagnosis [facility] [address] [facility] [address], [place] [address] IMMUNIZATIONS Vaccine Route Administration Date Status Flucelvax [...] 2016 -2016 Hospitalization History 1 month at [facility] for recovery of BKA. 2018 Goals Section No Information Health Concerns No Information MEDICAL EQUIPMENT No Information MENTAL STATUS No Information FUNCTIONAL STATUS No Information ASSESSMENTS No Information PLAN OF TREATMENT Next Appt Details Provider Name:Meg Ramirez, 2020-06-30 11 :20:00 AM, [address] [facility], [place], [address], Insurance Providers Payer Name Payer Payer Insured Patient Coverage Coverage Address Phone Name Relationship to Start Date End Date Insured [place] [phone] Keith Rosenberg [address] [facility] [address] MEDICAID [phone] Keith Rosenberg 2019 [id number] [facility] [id number]
--- OUTSIDE RECORDS SUMMARY | 2020-07-24 14:42 | XMS REPORT ---
[...] End Status Dosage System Date Date Nateglinide [facility] 30957983264 60 MG Orally Active 1 t ablet Three times a before day meals Kombiglyze XR ND 49521806587 5-500 MG Orally Active take 1 Once a day tablet by mouth in the evening with meals GlyBURIDE ND 57218074608 5 MG Orally tid Active 1 tablet with meal True Metrix [facility] 71335048152 - Active USE [address] [facility] Blood Glucose TO CHECK Test GLUCOSE TWICE DAILY Clonazepam ND 82647920391 1MG Orally PRN Active 1 - 2 anxiety daily tablet Clindamycin HCl ND 10568055516 300 MG Orally Active 2 capsules every 8 hrs Pioglitazone HCl [facility] 13982182201 30 MG Active Judson e 1 tablet by mouth once daily Actos NDC 83762047768 30 MG Orally Active 1 table t Once a day Results No Known Results Summary Purpose eClinicalWorks Submission
--- OUTSIDE RECORDS SUMMARY | 2020-07-24 14:42 | XMS REPORT ---
[...] End Status Dosage System Date Date Clonazepam [facility] 57975173648 1MG Orally PRN Active 1 - 2 anxiety daily tablet Nateglinide ND 12502630146 60 MG Orally Active 1 t ablet Three times a before day meals True Metrix [facility] 86526456089 - Active USE 1 Blood Glucose STRIP TO Test CHECK GLUCOSE TWICE DAILY GlyBURIDE [facility] 17308235227 5 MG Orally tid Active 1 tablet with meal Yvonneyze XR [facility] 91318390659 5-500 MG Orally Active take 1 Once a day tablet by mouth in the evening with meals Amoxicillin-Pot [facility] 15904383612 1000-62.5 MG March 06, Active 1 tablet Clavulanate ER Orally every 12 2020 hrs Actos [facility] 32230265036 30 MG Orally Active 1 table t Once a day Results No Known Results Summary Purpose eClinicalWorks Submission
--- OUTSIDE RECORDS SUMMARY | 2020-07-24 14:42 | XMS REPORT ---
:1955 Author Organization [facility] Address [address] [place] [address] Care Team Providers Name Role Phone James Unavailable [phone] PROBLEMS Type Condition ICD9-CM MDQ23-NA Onset Condition SNOMED Code Notes Code Code Dates Status Problem Other complications T87.89 Active 27771121 of amputation stump Problem Gastroesophageal K21.9 Active 346040577 reflux disease without esophagitis Problem Mixed hearing loss H90.8 Active 47498025 Problem Amputation of left Z89.512 Active 346742940 lower extremity below knee Problem Non-pressure L97.509 Active 753190951 chronic ulcer of other part of unspecified foot with unspecified severity Problem Primary insomnia F51.01 Active 8990710 Problem Type 2 diabetes E11.9 Active 723059364 mellitus without complications Problem Type 2 diabetes E11.65 Active 52750881 mellitus with hyperglycemia, without long-term current use of insulin Problem Unsteady gait R26.81 Active 48439203 Problem Abrasions of T07.XXXA Active 255734116 multiple sites Problem Anxiety, F41.1 Active 37775240 generalized Problem Non-pressure L97.929 Active 73693950 chronic ulcer of unspecified part of left lower leg with unspecified severity Problem Chronic kidney N18.3 Active 416778343 disease, stage 3 (moderate) Problem Type 2 diabetes E11.22 Active 67825697 mellitus with diabetic chronic kidney disease Problem Type 2 diabetes E11.36 Active 35338862 mellitus with diabetic cataract, without long-term current use of insulin ALLERGIES No Known Allergies ENCOUNTERS from 1955 to 2020-07-03 Encounter Location Date Provider Diagnosis [facility] [address] [facility] [address] Jun, Meg Ramirez Type 2 diabetes Family [facility] [place] [id number] hyperglycemia, without long-te rm current use of [...] 2015 -2016 Hospitalization History 1 month at [facility] for recovery of BKA. 2018 [...] Amputation of left lower extremity call prosthesis [employer] a gain about below knee ill fitting prosthesistry to wear sock under sleeve, Abrasions of multiple sites clean daily with soap and watera pply mupirocin oint to abrasions daily until abrasion gone Next Appt Details 3 Months Reason: Insurance Providers Payer Name Payer Payer Insured Patient Coverage Coverage Address Phone Name Relationship to Start Date End Date Insured [place] [phone] Keith Rosenberg [address] [facility] [address] MEDICAID [address] [phone] Keith Rosenberg 2020 [id number] [facility] [id number]
--- OUTSIDE RECORDS SUMMARY | 2020-07-24 14:42 | XMS REPORT ---
[...] Dosage System Date Date Pioglitazone HCl ND 97128903823 30 MG Active Judson e 1 tablet by mouth once daily GlyBURIDE ND 24898801832 5 MG Orally tid Active 1 tablet with meal Kombiglyze XR ND 94013361931 5-500 MG Orally Active take 1 Once a day tablet by mouth in the evening with meals True Metrix ND 61645348027 - Active USE 1 Blood Glucose STRIP TO Test CHECK GLUCOSE TWICE DAILY Nateglinide [facility] 84509786065 60 MG Orally Active 1 t ablet Three times a before day meals Clonazepam [facility] 33895044278 1MG Orally PRN Active 1 - 2 anxiety daily tablet Results No Known Results Summary Purpose eClinicalWorks Submission
[2020-07-24] MEDS ORDERED: INSULIN -REGULAR HUMAN 50 UNIT/0.5 ML ML ONE (15:22)
[2020-07-24] MEDS ORDERED: NA CHLORIDE 0.9% 1,000 ML ONE (15:22)
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
[2020-07-24 17:58] VITALS: TEMP 97.8; O2SAT 100
[2020-07-24 18:04] VITALS: BP 146/71
== END 2020-07-24 17:18 | disposition home or self-care (01) ==
LOC: ER 12:42
DX: E11.65 Type 2 diabetes mellitus with hyperglycemia (principal); I10 Essential (primary) hypertension; Z88.5 Allergy status to narcotic agent
CPT/HCPCS: 96361; 80048; 36415; 82947 ×3; 96374; 99284; J7030

== ENCOUNTER 2020-07-24 22:50 | Emergency (ER) | payer OTHER ==
--- OUTSIDE RECORDS SUMMARY | 2020-07-24 22:53 | XMS REPORT | Continuity of Care Document ---
:1955 Author Organization [facility] t Address [address] [place] [address] Care Team Providers Name Role Phone Unavailable Unavailable Unavailable Problems This patient has no known problems. Allergies, Adverse Reactions, Alerts This patient has no known allergies or adverse reactions. Medications Ordered Filled Start Stop Current Ordering Indication Dosage Frequency Signature Comments Components Source Medication Medication Date Date Medication? Clinician (SIG) Name Name Clonazepam Clonazepam Yes Meg 1 - [address] [place] tablet [facility] Kombiglyze Kombiglyze Yes Meg take [address] [facility] XR XR [place] tablet by [facility] - mouth in [facility] the l evening Outpati with meals ent Clinics True Metrix True Metrix Yes Meg USE [address] [facility] Blood Blood [place] STRIP TO [facility] - Glucose Glucose CHECK [facility] Test Test GLUCOSE l TWICE Outpati DAILY ent Clinics Nateglinide Nateglinide Yes Emg [address] [facility] [place] before [facility] - meals [facility] GlyBURIDE GlyBURIDE Yes Meg [address] [facility] [place] with meal kes - [facility] Pioglitazon Pioglitazon Yes Meg Take [address] [facility] e HCl e HCl [place] [facility] Procedures This patient has no known procedures. Encounters Start End Encounter Admission Attending Care Care Encounter Source Date/Time Date/Time Type Type Clinicians Facility Department ID 2020-06-30 2020-06-30 Out[facility] [id number] 2020-06-27 2020-06-27 Outpatient [facility] [id number] [facility] 2020-06-13 2020-06-13 [facility] [id number] [facility] 11:00:00 11:00:[address] [employer] [address] [facility] Medicine l Medicine Outpati ent Clinics 2020-06-10 2020-06-10 [facility] [id number] [facility] 09:00[facility]00 09:00:00 t [facility] Medicine Outpati ent Clinics 2020-06-10 2020-06-10 [facility] [id number] [address] 09:00:00 09:00:00 t [facility] Medicine Outpati ent Clinics 2020-05-27 2020-05-27 [facility] [id number] [facility] [address] 08:40:00 08:40:00 [facility] Medicine Outpati ent Clinics 2020-05-02 2020-05-02 [facility] [id number] [facility] 15:19:00 15:19:00 t [facility] Medicine Outpati ent Clinics 2020-05-01 2020-05-01 [facility] [id number] 14:00:00 14:00:00 t [facility] Medicine l Medicine Outpati ent Clinics 2020-03-06 2020-03-06 [facility] [id number] [address] 14:00:00 14:00:00 t [facility] Medicine Outpati ent Clinics 2020-02-06 2020-02-06 [facility] [id number] [facility] 18:58:00 18:58:00 [facility] Medicine Outpati ent Clinics 2020-01-31 2020-01-31 [facility] [id number] [facility] 13:00:00 13:00:00 t [facility] Medicine Outpati ent Clinics 2020-01-22 2020-01-22 [facility] [id number] [address] 10:20:00 10:20:00 [facility] Medicine Outpati ent Clinics 2020-01-14 2020-01-14 [facility] [id number] [address] 13:00:00 13:00:00 [facility] Medicine Outpati ent Clinics 2019-12-31 2019-12-31 [facility] [id number] [address] 13:20:00 13:20:00 t [facility] Medicine Outpati ent Clinics 2019-12-24 2019-12-24 [facility] [id number] 14:40:00 14:40:00 [facility] Medicine Outpati ent Clinics 2019-11-07 2019-11-07 [facility] [id number] 09:27:00 09:27:00 t [facility] Medicine Medicine Outpati ent Clinics 2019-10-23 2019-10-23 [facility] [id number] [facility] 10:20:00 10:20:00 t [facility] Medicine Outpati ent Clinics 2019-10-10 2019-10-10 [facility] [id number] [address] 17:03:00 17:03:00 [facility] Medicine Outpati ent Clinics 2019-10-01 2019-10-01 [facility] [id number] 11:15:00 11:15:00 [facility] Medicine Outpati ent Clinics 2019-09-13 2019-09-13 [facility] [id number] [address] 10:01:00 10:01:00 [facility] Medicine Outpati ent Clinics 2019-07-23 2019-07-23 [facility] [id number] 10:20:00 10:20:00 t [facility] Medicine Medicine Outpati ent Clinics 2019-07-16 2019-07-16 [facility] [id number] [address] 08:04:00 08:04:00 t [facility] Medicine Outpati ent Clinics 2019-07-10 2019-07-10 [facility] [id number] 13:39:00 13:39:[address] [place] [address] [facility] Medicine l Medicine Outpati ent Clinics 2019-04-23 2019-04-23 [facility] [id number] 09:00:00 09:00:00 [facility] Medicine Outpati ent Clinics 2019-03-14 2019-03-14 [facility] [id number] 10:20:00 10:20:00 t [facility] Medicine Outpati ent Clinics 2019-02-05 2019-02-05 [facility] [id number] 09:58:00 09:58:00 t [facility] Medicine Medicine Outpati ent Clinics 2019-01-29 2019-01-29 [facility] [id number] 11:31:00 11:31:00 t [facility] Medicine Outpati ent Clinics 2019-01-10 2019-01-10 [facility] [id number] 15:00:00 15:00:00 t [facility] Medicine Medicine Outpati ent Clinics 2019-01-02 2019-01-02 [facility] [id number] 09:40:00 09:40:00 t [facility] Medicine Outpati ent Clinics 2018-12-18 2018-12-18 [facility] [id number] 17:51:00 17:51:00 t [facility] Medicine Outpati ent Clinics 2018-12-18 2018-12-18 [facility] [id number] 10:44:00 10:44:00 t [facility] Medicine Outpati ent Clinics 2018-12-12 2018-12-12 [facility] [id number] 16:00:00 16:00:00 t [facility] Medicine Outpati ent Clinics 2018-11-28 2018-11-28 [facility] [id number] [facility] 16:05:00 16:05:00 t [facility] Medicine Medicine Outpati ent Clinics 2018-11-21 2018-11-21 [facility] [id number] 09:30:00 09:30:00 t [facility] Medicine Outpati ent Clinics 2018-10-24 2018-10-24 [facility] [id number] 09:30:00 09:30:00 t [facility] Medicine Outpati ent Clinics 2018-09-18 2018-09-18 [facility] [id number] 17:24:00 17:24:00 t [facility] Medicine Outpati ent Clinics 2018-09-18 2018-09-18 [facility] [id number] 17:20:00 17:20:00 t [facility] Medicine Medicine Outpati ent Clinics 2018-07-03 2018-07-03 [facility] [id number] [facility] 11:17:00 11:17:00 t [facility] Medicine Medicine Outpati ent Clinics 2018-06-29 2018-06-29 [facility] [id number] [facility] 12:13:00 12:13:00 t [facility] Medicine Outpati ent Clinics 2018-06-26 2018-06-26 [facility] [id number] [facility] 13:00:00 13:00:00 t [facility] Medicine Outpati ent Clinics 2018-05-17 2018-05-17 Outpatient Aida Braxton [id number] 09[facility]56:00 09:56:00 [facility] ent [facility] 2018-04-11 2018-04-11 Outpatient Aida Braxton [id number] 11:00:00 11:00:00 [facility] ent Clinics Results This patient has no known results.
--- OUTSIDE RECORDS SUMMARY | 2020-07-24 22:53 | XMS REPORT ---
:1955 Author Organization [facility] Address [address] [facility] [place] [address] Care Team Providers Name Role Phone James Unavailable [phone] PROBLEMS Type Condition ICD9-CM [id number] Onset Condition SNOMED Code Notes Code Code Dates Status Problem Gastroesophageal K21.9 Active 731205839 reflux disease without esophagitis Problem Amputation of left Z89.512 Active 563247941 lower extremity below knee Problem Other complications T87.89 Active 67364059 of amputation stump Problem Unsteady gait R26.81 Active 50671966 Problem Non-pressure L97.509 Active 758399560 chronic ulcer of other part of unspecified foot with unspecified severity Problem Primary insomnia F51.01 Active 0598240 Problem Chronic kidney N18.3 Active 317103859 disease, stage 3 (moderate) Problem Anxiety, F41.1 Active 03993340 generalized Problem Type 2 diabetes E11.22 Active 20334581 mellitus with diabetic chronic kidney disease Problem Mixed hearing loss H90.8 Active 73660599 Problem Type 2 diabetes E11.9 Active 833657942 mellitus without complications Problem Non-pressure L97.929 Active 50236490 chronic ulcer of unspecified part of left lower leg with unspecified severity Problem Type 2 diabetes E11.36 Active 64827475 mellitus with diabetic cataract, without long-term current use of insulin Problem Type 2 diabetes E11.65 Active 88684081 mellitus with hyperglycemia, without long-term current use of insulin ALLERGIES No Known Allergies ENCOUNTERS from 1955 to 2020-06-27 Encounter Location Date Provider Diagnosis [facility] [address] [facility] [address], [place] [address] IMMUNIZATIONS Vaccine Route Administration Date Status Flucelvax [...] 2016 -2016 Hospitalization History 1 month at [facility] for recovery of BKA. 2018 Goals Section No Information Health Concerns No Information MEDICAL EQUIPMENT No Information MENTAL STATUS No Information FUNCTIONAL STATUS No Information ASSESSMENTS No Information PLAN OF TREATMENT Next Appt Details Provider Name:Meg Ramirez, 2020-06-30 11 :20:00 AM, [address] [facility], [place], [address], Insurance Providers Payer Name Payer Payer Insured Patient Coverage Coverage Address Phone Name Relationship to Start Date End Date Insured [place] [phone] Keith Rosenberg [address] [facility] [id number] MEDICAID [phone] Keith Rosenberg 2019 [id number] [facility] [id number]
--- OUTSIDE RECORDS SUMMARY | 2020-07-24 22:53 | XMS REPORT ---
[...] End Status Dosage System Date Date Clonazepam [facility] 39945398384 1MG Orally PRN Active 1 - 2 anxiety daily tablet Nateglinide ND 97942470073 60 MG Orally Active 1 t ablet Three times a before day meals True Metrix [facility] 05278851370 - Active USE 1 Blood Glucose STRIP TO Test CHECK GLUCOSE TWICE DAILY GlyBURIDE [facility] 19762319602 5 MG Orally tid Active 1 tablet with meal Yvonneyze XR [facility] 09190619049 5-500 MG Orally Active take 1 Once a day tablet by mouth in the evening with meals Amoxicillin-Pot [facility] 37652725066 1000-62.5 MG March 06, Active 1 tablet Clavulanate ER Orally every 12 2020 hrs Actos [facility] 09919069764 30 MG Orally Active 1 table t Once a day Results No Known Results Summary Purpose eClinicalWorks Submission
--- OUTSIDE RECORDS SUMMARY | 2020-07-24 22:53 | XMS REPORT ---
[...] End Status Dosage System Date Date Nateglinide [facility] 88794180866 60 MG Orally Active 1 t ablet Three times a before day meals Kombiglyze XR ND 19389063918 5-500 MG Orally Active take 1 Once a day tablet by mouth in the evening with meals GlyBURIDE ND 71391839125 5 MG Orally tid Active 1 tablet with meal True Metrix [facility] 11302944220 - Active USE [address] [facility] RIP Blood Glucose TO CHECK Test GLUCOSE TWICE DAILY Clonazepam ND 58021440737 1MG Orally PRN Active 1 - 2 anxiety daily tablet Clindamycin HCl ND 11876075178 300 MG Orally Active 2 capsules every 8 hrs Pioglitazone HCl [facility] 69700464702 30 MG Active Judson e 1 tablet by mouth once daily Actos NDC 51637386795 30 MG Orally Active 1 table t Once a day Results No Known Results Summary Purpose eClinicalWorks Submission
--- OUTSIDE RECORDS SUMMARY | 2020-07-24 22:53 | XMS REPORT ---
[...] Dosage System Date Date Pioglitazone HCl ND 85485230334 30 MG Active Judson e 1 tablet by mouth once daily GlyBURIDE ND 48178700477 5 MG Orally tid Active 1 tablet with meal Kombiglyze XR ND 31058102114 5-500 MG Orally Active take 1 Once a day tablet by mouth in the evening with meals True Metrix ND 29245876666 - Active USE 1 Blood Glucose STRIP TO Test CHECK GLUCOSE TWICE DAILY Nateglinide [facility] 64488267475 60 MG Orally Active 1 t ablet Three times a before day meals Clonazepam [facility] 11337026616 1MG Orally PRN Active 1 - 2 anxiety daily tablet Results No Known Results Summary Purpose eClinicalWorks Submission
--- OUTSIDE RECORDS SUMMARY | 2020-07-24 22:53 | XMS REPORT ---
:1955 Author Organization [facility] Address [address] [facility] [place] [address] Care Team Providers Name Role Phone James Unavailable [phone] PROBLEMS Type Condition ICD9-CM [id number] Onset Condition SNOMED Code Notes Code Code Dates Status Problem Other complications T87.89 Active 81689794 of amputation stump Problem Gastroesophageal K21.9 Active 005411795 reflux disease without esophagitis Problem Mixed hearing loss H90.8 Active 65573715 Problem Amputation of left Z89.512 Active 825091306 lower extremity below knee Problem Non-pressure L97.509 Active 253985638 chronic ulcer of other part of unspecified foot with unspecified severity Problem Primary insomnia F51.01 Active 7117162 Problem Type 2 diabetes E11.9 Active 721779152 mellitus without complications Problem Type 2 diabetes E11.65 Active 19906959 mellitus with hyperglycemia, without long-term current use of insulin Problem Unsteady gait R26.81 Active 66468303 Problem Abrasions of T07.XXXA Active 191306682 multiple sites Problem Anxiety, F41.1 Active 48358705 generalized Problem Non-pressure L97.929 Active 70479486 chronic ulcer of unspecified part of left lower leg with unspecified severity Problem Chronic kidney N18.3 Active 644252865 disease, stage 3 (moderate) Problem Type 2 diabetes E11.22 Active 42956532 mellitus with diabetic chronic kidney disease Problem Type 2 diabetes E11.36 Active 53206868 mellitus with diabetic cataract, without long-term current use of insulin ALLERGIES No Known Allergies ENCOUNTERS from 1955 to 2020-07-03 Encounter Location Date Provider Diagnosis [facility] [address] [facility] [address], Meg Ramirez Type 2 diabetes [facility] [place] mellitus with [id number] hyperglycemia, without long-te rm current use of [...] 2015 -2016 Hospitalization History 1 month at [facility] for recovery of BKA. [...] Amputation of left lower extremity call prosthesis [employer] a gain about below knee ill fitting prosthesistry to wear sock under sleeve, Abrasions of multiple sites clean daily with soap and watera pply mupirocin oint to abrasions daily until abrasion gone Next Appt Details 3 Months Reason: Insurance Providers Payer Name Payer Payer Insured Patient Coverage Coverage Address Phone Name Relationship to Start Date End Date Insured [place] [phone] Keith Rosenberg [address] [facility] [address] MEDICAID [phone] Keith Rosenberg 2019 [id number] [address] [facility] [id number]
--- OUTSIDE RECORDS SUMMARY | 2020-07-24 22:53 | XMS REPORT ---
[...] Dosage System Date Date Clindamycin HCl [facility] 08973754963 300 MG Orally Active 2 capsules every 8 hrs Pioglitazone HCl [facility] 27649948745 30 MG Active Judson e 1 tablet by mouth once daily GlyBURIDE ND 51144818149 5 MG Orally tid Active 1 tablet with meal Kombiglyze XR ND 93189176064 5-500 MG Orally Active take 1 Once a day tablet by mouth in the evening with meals Actos ND 14318698994 30 MG Orally Active 1 table t Once a day True Metrix [facility] 23978947124 - Active USE [address] [facility] RIP Blood Glucose TO CHECK Test GLUCOSE TWICE DAILY Clonazepam ND 80406119439 1MG Orally PRN Active 1 - 2 anxiety daily tablet Nateglinide [facility] 52771054472 60 MG Orally Active 1 t ablet Three times a before day meals Results No Known Results Summary Purpose eClinicalWorks Submission
[2020-07-24] MEDS ORDERED: NA CHLORIDE 0.9% 2,000 ML ONE (23:10)
[2020-07-24] MEDS ORDERED: NA CHLORIDE 0.9% 250 ML ONE ×2 (23:35→23:55)
[2020-07-24] MEDS ORDERED: PANTOPRAZOLE 40 MG INJ ONE (23:35)
[2020-07-24 23:40] LABS: Absolute Lymphocytes (CBC) 1.1 K/uL (0.7-4.9); Basophils % 0.8 % (0-1.3); Lymphocytes % 12.3 % (15.3-44.8); MPV 10.1 fL (7.6-11.3); RBC Red Blood Cell Count 2.25 M/uL (4.33-5.43)
[2020-07-24 23:41] LABS: Protime INR 1.01
[2020-07-24] MEDS ORDERED: OCTREOTIDE ACETATE 100 MCG/ML ONE (23:55)
[2020-07-25 00:10] LABS: Hematocrit 20.8 % (39.6-49.0)
[2020-07-25] MEDS ORDERED: DIPHENHYDRAMINE 50 MG/ML VIAL ONE (00:13)
--- NOTE | 2020-07-25 00:19 | ER ---
Nurse's Notes [facility] Name: Agus Rosenberg Age: 65 yrs Sex: Male : 1955 Arrival Date: 07/24/2020 Time: 22:53 Bed 6 Private MD: Diagnosis: Gastrointestinal hemorrhage, unspecified;Anemia, unspecified;Acidosis Presentation: 07/24 23:03 Chief complaint: EMS states: RESPONDED TO CALL OF MAN THAT HAD FALLEN GETTING OFF ll2 TOILET, THEY ARRIVED AND FOUND HIM WITH A BOWL FULL OF BLOOD IN THE TOILET. PT WAS SEEN EARLIER TODAY IN ER FOR STOMACH PAIN AND SENT HOME WITH MIRALAX. UPON ARRIVAL FROM EMS HIS FSBS WAS OVER 450. ONLY THING GIVEN IN ROUTE WAS LR WHICH ONLY ABOUT 200 CC INFUSED. BP INITIALLY WAS 70/43, IN ROUTE IT IMPROVED TO 90/63. Coronavirus screen: Client denies travel out of the [place] in the last 14 days. At this time, the client does not indicate any symptoms associated with coronavirus-19. Ebola Screen: Patient negative for fever greater than or equal to 101.5 degrees Fahrenheit, and additional compatible Ebola Virus Disease symptoms. Initial Sepsis Screen: Does the patient meet any 2 criteria? RR > 20 per min. HR > 90 bpm. Yes Does the patient have a suspected source of infection? Yes: Acute abdominal pain If YES to both, name of provider notified: Jose Roberto Brody MD Risk Assessment: Do you want to hurt yourself or someone else? Patient reports no desire to harm self or others. Onset of symptoms was July 24, 2020. 23:03 Method Of Arrival: EMS: [facility] 2 23:03 Acuity: GUEVARA 2 ll2 Triage Assessment: 23:12 General: Appears ill, Behavior is calm, drowsy. Pain: Unable to use pain scale. Patient ll2 is disoriented. Historical: - Allergies: 23:12 Lidocaine; ll2 - Home Meds: 23:12 glyburide 5 mg Oral tab three times a day [Active]; Kombiglyze XR 5-500 mg Oral TM24 1 ll2 tab once daily [Active]; nateglinide 60 mg Oral tab 1 tab 3 times per day [Active]; pioglitazone 30 mg Oral tab 1 tab once daily [Active]; - PMHx: 23:12 Diabetes - NIDDM; Hypertension; ll2 - PSHx: 23:12 Unable to obtain; ll2 - Immunization history:: Adult Immunizations up to date. - Social history:: Smoking status: unknown. Screenin:30 Abuse screen: Denies threats or abuse. Denies injuries from another. Nutritional rv screening: No deficits noted. Tuberculosis screening: No symptoms or risk factors identified. Fall Risk None identified. Assessment: 23:31 General: Appears ill, Behavior is calm, cooperative. Pain: Denies pain. Neuro: Level of rv Consciousness is awake, alert, obeys commands, Oriented to person, place, time, situation. Cardiovascular: Patient's skin is warm and dry. Rhythm is sinus tachycardia. Respiratory: Airway is patent Respiratory effort is even, unlabored, Breath sounds are clear bilaterally. Derm: Skin is pale. 23:31 Reassessment: RECEIVED PATIENT FROM EMS PALE, AND PAPER WHITE, APPEARS TO BE GENERALLY rv WEAK. BLEEDING NOTED IN PANTS AND UNDERWEAR. GCS 15, ALERT AND ORIENTED X 4. 07/25 02:00 Reassessment: Patient and/or family updated on plan of care and expected duration. Pain rv level reassessed. Patient is alert, oriented x 3, equal unlabored respirations, skin warm/dry/pink. patient is alert and oriented. updated on the plan of care. patient is to received blood transfusion and for transfer. patient understood and agreed. 03:49 Neuro: Level of Consciousness is awake, alert, obeys commands, Oriented to person, rv place, time, situation. Cardiovascular: Patient's skin is warm and dry. Rhythm is sinus rhythm. Respiratory: Airway is patent Respiratory effort is even, unlabored, Breath sounds are clear bilaterally. 03:49 Reassessment: patient is transferred with second unit of blood still ongoing. rv Vital Signs: 07/24 23:03 BP 104 / 59; Pulse 114; Resp 28; Temp 97.3; Pulse Ox 100% on R/A; ll2 07/25 00:00 BP 136 / 66; Pulse 102; Resp 19; Pulse Ox 100% on R/A; rv 00:30 BP 138 / 66; Pulse 99; Resp 18; Pulse Ox 100% on R/A; rv 01:00 BP 136 / 60; Pulse 92; Resp 19; Pulse Ox 100% on R/A; rv 01:30 BP 122 / 63; Pulse 86; Resp 19; Pulse Ox 100% on R/A; rv 02:00 BP 118 / 66; Pulse 93; Resp 18; Pulse Ox 100% on R/A; rv 02:30 BP 136 / 101; Pulse 92; Resp 19; Pulse Ox 100% on R/A; rv 03:00 BP 136 / 62; Pulse 83; Resp 19; Pulse Ox 100% on R/A; rv 03:30 BP 139 / 65; Pulse 79; Resp 20; Pulse Ox 100% on R/A; rv ED Course: 07/24 22:53 Patient arrived in ED. am2 22:53 Claudia Pena, RN is Primary Nurse. ll2 22:54 Jose Roberto Brody MD is Attending Physician. tw4 23:11 Triage completed. ll2 23:13 Arm band placed on right wrist. Labs ordered per protocol. Drawn by lab. ll2 23:30 Inserted saline lock: 18 gauge in right hand, using aseptic technique. Maintain EMS IV. rv Dressing intact. Good blood return noted. Site clean \T\ dry. Gauge \T\ site: G18 RIGHT AC. 23:33 Patient has correct armband on for positive identification. Placed in gown. Bed in low rv position. Call light in reach. Side rails up X2. compliance monitor on. Pulse ox on. NIBP on. 23:36 XRAY Chest (1 view) In Process Unspecified. EDMS 07/25 00:09 Notified ED physician of a critical lab result(s). HGB 6.8, HCT 20.8, Lactate 9.3. Dr presley Brody notified. 03:49 IV is patent, with fluids infusing freely, with good blood return. rv 03:50 No provider procedures requiring assistance completed. Patient transferred, IV remains rv in place. Administered Medications: 07/24 23:50 Drug: ProTONIX 40 mg Route: IVP; Site: right hand; rv 07/25 03:51 Follow up: Response: No adverse reaction rv 07/24 23:51 Drug: ProTONIX 8 mg/hr Route: IV; Rate: 25 ml/hr; Site: right hand; rv 07/25 03:51 Follow up: IV Status: Infusion continued upon transfer rv 07/24 23:51 Drug: Octreotide 50 mcg Route: IV; Rate: bolus; Site: right antecubital; rv 07/25 00:00 Follow up: IV Status: Completed infusion rv 07/24 23:51 Drug: Octreotide Infusion (50 mcg/hr) - (Octreotide 500 mcg, NS 0.9% 500 ml) Route: IV; rv Rate: 50 ml/hr; Site: right antecubital; 07/25 03:51 Follow up: IV Status: Infusion continued upon transfer rv Medication: 03:49 Blood products: PRBCs X 2 units given. See transfusion record. rv Outcome: 00:18 ER care complete, transfer ordered by . tw4 03:50 Transferred by ground EMS to [facility], [facility], Transfer form completed. rv X-rays sent w/ patient. 03:50 Condition: stable 03:50 Instructed on the need for transfer, Demonstrated understanding of instructions. 03:52 Patient left the ED. rv Signatures: Dispatcher [employer] EDMS Natasha Cardenas RN RN bb Pam Holman am2 Jose Roberto Brody MD MD tw4 Thierno Sainz RN RN rv Claudia Pena RN RN ll2 Corrections: (The following items were deleted from the chart) 03:48 03:45 Reassessment: Patient and/or family updated on plan of care and expected rv duration. Pain level reassessed. Patient is alert, oriented x 3, equal unlabored respirations, skin warm/dry/pink. patient is alert and oriented. updated on the plan of care. patient is to received blood transfusion and for transfer. patient understood and agreed. rv 03:52 03:51 IV Status: Infusion continued upon transfer rv rv
--- NOTE | 2020-07-25 00:19 | EDPHYS ---
Physician Documentation [facility] Name: Agus Rosenberg Age: 65 yrs Sex: Male : 1955 Arrival Date: 07/24/2020 Time: 22:53 Bed 6 Private MD: ED Physician Jose Roberto Brody HPI: 07/25 02:19 This 65 yrs old Male presents to ER via EMS with complaints of lowre GI bleed.tw4 02:19 The patient presents to the emergency department with rectal bleeding, "filled toilet", tw4 melena. Onset: The symptoms/episode began/occurred just prior to arrival, today. Abdominal pain: described as crampy. Modifying factors: The symptoms are alleviated by nothing, the symptoms are aggravated by nothing. Severity of symptoms: At their worst the symptoms were severe in the emergency department the symptoms are unchanged. The patient has not experienced similar symptoms in the past. Historical: - Allergies: 07/24 23:12 Lidocaine; ll2 - Home Meds: 23:12 glyburide 5 mg Oral tab three times a day [Active]; Kombiglyze XR 5-500 mg Oral TM24 1 ll2 tab once daily [Active]; nateglinide 60 mg Oral tab 1 tab 3 times per day [Active]; pioglitazone 30 mg Oral tab 1 tab once daily [Active]; - PMHx: 23:12 Diabetes - NIDDM; Hypertension; ll2 - PSHx: 23:12 Unable to obtain; ll2 - Immunization history:: Adult Immunizations up to date. - Social history:: Smoking status: unknown. ROS: 07/25 02:57 Constitutional: Negative for fever, chills, and weight loss, Eyes: Negative for injury, tw4 pain, redness, and discharge, Cardiovascular: Negative for chest pain, palpitations, and edema, Respiratory: Negative for shortness of breath, cough, wheezing, and pleuritic chest pain, MS/Extremity: Negative for injury and deformity, Skin: Negative for injury, rash, and discoloration, Neuro: Negative for headache, weakness, numbness, tingling, and seizure. Abdomen/GI: Positive for rectal bleeding. Exam: 02:57 Constitutional: This is a well developed, well nourished patient who is awake, alert, tw4 and in no acute distress. Head/Face: Normocephalic, atraumatic. Chest/axilla: Normal chest wall appearance and motion. Nontender with no deformity. No lesions are appreciated. Cardiovascular: Regular rate and rhythm with a normal S1 and S2. No gallops, murmurs, or rubs. Normal PMI, no JVD. No pulse deficits. 02:57 Abdomen/GI: Soft, non-tender, with normal bowel sounds. No distension or tympany. No guarding or rebound. No evidence of tenderness throughout. Back: No spinal tenderness. No costovertebral tenderness. Full range of motion. MS/ Extremity: Pulses equal, no cyanosis. Neurovascular intact. Full, normal range of motion. Neuro: Awake and alert, GCS 15, oriented to person, place, time, and situation. Cranial nerves II-XII grossly intact. Motor strength 5/5 in all extremities. Sensory grossly intact. Cerebellar exam normal. Normal gait. 02:57 Eyes: Conjunctiva: pale. Vital Signs: 07/24 23:03 BP 104 / 59; Pulse 114; Resp 28; Temp 97.3; Pulse Ox 100% on R/A; ll2 07/25 00:00 BP 136 / 66; Pulse 102; Resp 19; Pulse Ox 100% on R/A; rv 00:30 BP 138 / 66; Pulse 99; Resp 18; Pulse Ox 100% on R/A; rv 01:00 BP 136 / 60; Pulse 92; Resp 19; Pulse Ox 100% on R/A; rv 01:30 BP 122 / 63; Pulse 86; Resp 19; Pulse Ox 100% on R/A; rv 02:00 BP 118 / 66; Pulse 93; Resp 18; Pulse Ox 100% on R/A; rv 02:30 BP 136 / 101; Pulse 92; Resp 19; Pulse Ox 100% on R/A; rv 03:00 BP 136 / 62; Pulse 83; Resp 19; Pulse Ox 100% on R/A; rv 03:30 BP 139 / 65; Pulse 79; Resp 20; Pulse Ox 100% on R/A; rv MDM: 07/24 22:54 Patient medically screened. tw4 07/25 02:57 Differential diagnosis: gastritis, hemorrhagic shock. Data reviewed: vital signs, tw4 nurses notes. Data interpreted: Pulse oximetry: Interpretation: normal. Counseling: I had a detailed discussion with the patient and/or guardian regarding: the historical points, exam findings, and any diagnostic results supporting the discharge/admit diagnosis, lab results. ED course: Labs revealed pt had Hgb of 6.8. Pt remained normotensive in the ED. Started transfusion of two units in the ED. 07/24 22:55 Order name: Basic Metabolic Panel; Complete Time: 01:17 tw4 07/24 22:55 Order name: CBC with Diff; Complete Time: :17 tw4 07/24 22:55 Order name: Magnesium; Complete Time: :17 tw4 07/24 22:55 Order name: NT PRO-BNP; Complete Time: :17 tw4 07/24 22:55 Order name: PT-INR; Complete Time: : tw4 07/24 22:55 Order name: Troponin (emerg Dept Use Only); Complete Time: :17 tw4 07/24 22:55 Order name: TS [facility] 07/24 23:21 Order name: Glucose, Ancillary Testing; Complete Time: :17 EDMS 07/24 22:55 Order name: EKG - Nurse/Tech; Complete Time: 23:34 [facility] 07/24 22:55 Order name: XRAY Chest (1 view) tw4 07/24 22:55 Order name: EKG; Complete Time: 22:56 tw4 07/24 22:55 Order name: Cardiac monitoring; Complete Time: 23:34 tw4 07/24 22:55 Order name: EKG - Nurse/Tech; Complete Time: 23:44 tw4 07/24 22:55 Order name: IV Saline Lock; Complete Time: 23:34 tw4 07/24 22:55 Order name: Labs collected and sent; Complete Time: 23:34 tw4 07/24 22:55 Order name: O2 Per Protocol; Complete Time: 23:34 tw4 07/24 22:55 Order name: O2 Sat Monitoring; Complete Time: 23:34 tw4 07/24 23:41 Order name: Lactate; Complete Time: :17 EDMS 07/25 00:11 Order name: Manual Differential; Complete Time: :17 EDMS 07/25 00:44 Order name: Packed RBC Leukored EDTX 07/24 23:05 Order name: Transfer - Initiate; Complete Time: 23:34 tw4 EC:37 Rate is 115 beats/min. Rhythm is regular. QRS [place] is Normal. [place] interval is normal. tw4 QRS interval is normal. QT interval is normal. No Q waves. T waves are Peaked in leads I, II, V2, V3. No ST changes noted. Clinical impression: NSR w/ Non-specific ST/T Changes and Sinus tachycardia. Interpreted by me. Reviewed by me. Administered Medications: 07/24 23:50 Drug: ProTONIX 40 mg Route: IVP; Site: right hand; rv 07/25 03:51 Follow up: Response: No adverse reaction rv 07/24 23:51 Drug: ProTONIX 8 mg/hr Route: IV; Rate: 25 ml/hr; Site: right hand; rv 07/25 03:51 Follow up: IV Status: Infusion continued upon transfer rv 07/24 23:51 Drug: Octreotide 50 mcg Route: IV; Rate: bolus; Site: right antecubital; rv 07/25 00:00 Follow up: IV Status: Completed infusion rv 07/2451 Drug: Octreotide Infusion (50 mcg/hr) - (Octreotide 500 mcg, NS 0.9% 500 ml) Route: IV; rv Rate: 50 ml/hr; Site: right antecubital; 07/25 03:51 Follow up: IV Status: Infusion continued upon transfer rv Disposition: 07/25/20 00:[address] [facility]. Diagnosis are Gastrointestinal hemorrhage, unspecified, Anemia, unspecified, Acidosis. - Reason for transfer: Higher level of care. - Accepting physician is Dr mcneal. - Condition is Fair. - Problem is new. - Symptoms are unchanged. Signatures: Dispatcher [employer] EDTX Martin Nicole PA PA [id number] Jose Roberto Brody MD MD tw4 Thierno Sainz RN RN rv Claudia Pena RN RN ll2 Corrections: (The following items were deleted from the chart) 07/24 23:32 22:55 CBC+H.LAB.BRZ ordered. [facility] : 22:55 BASIC METABOLIC PANEL+C.LAB.BRZ ordered. [facility] 07/25 00:19 00:18 07/25/2020 00:[address] [facility]. tw4 Diagnosis is Gastrointestinal hemorrhage, unspecified; Anemia, unspecified. Reason for transfer: Higher level of care. Accepting physician is Condition is Fair. Problem is new. Symptoms are unchanged. tw4 01:27 00:19 07/25/2020 00:[address] [facility]. tw4 Diagnosis is Gastrointestinal hemorrhage, unspecified; Anemia, unspecified; Acidosis. Reason for transfer: Higher level of care. Accepting physician is Condition is Fair. Problem is new. Symptoms are unchanged. tw4 03:52 01:27 07/25/2020 00:[address] [facility]. rv Diagnosis is Gastrointestinal hemorrhage, unspecified; Anemia, unspecified; Acidosis. Reason for transfer: Higher level of care. Accepting physician is Dr mcneal. Condition is Fair. Problem is new. Symptoms are unchanged. tw4
[2020-07-25 00:37] LABS: Magnesium 2.1 mg/dL (1.8-2.4); Potassium 4.6 mmol/L (3.5-5.1); Troponin (Emerg Dept Use Only) 0.06 ng/mL (0.0-0.045)
[2020-07-25 00:49] LABS: Blood Morphology Comment NOT SEEN (NOT SEEN); Platelet Estimate ADEQ
[2020-07-25 04:12] VITALS: TEMP 97.3; O2SAT 100
[2020-07-25 04:23] VITALS: BP 139/65
--- NOTE | 2020-07-25 08:33 | RAD REPORT ---
EXAM DESCRIPTION: RAD - Chest Single View - 07/24/2020 11:36 pm CLINICAL HISTORY: .. Chest pain. COMPARISON: Chest Single View dated 09/08/2017; CHEST SINGLE VIEW dated 08/05/2015 FINDINGS: Portable technique limits examination quality. The lungs are grossly clear. The heart is upper limit normal in size. No displaced fractures. IMPRESSION: No acute intrathoracic process suspected.
--- NOTE | 2020-07-26 09:34 | EKG ---
Test Date: 2020-07-24 Test Time: 23:43:51 Dry Wall Plasterer: BENIGNO MEASUREMENT RESULTS: Intervals: Rate: 215 WA: 116 QRSD: 94 QT: 194 QTc: 366 [place]: P: -2 WA: 116 QRS: -42 T: 94 INTERPRETIVE STATEMENTS: Sinus tachycardia with fusion complexes Left axis deviation Low voltage QRS Cannot rule out Anteroseptal infarct, age undetermined Lateral injury pattern ACUTE DC Abnormal ECG Compared to ECG 09/08/2017 17:42:27 Fusion complex(es) now present Left-axis deviation now present Low QRS voltage now present Sinus rhythm no longer present Myocardial infarct finding still present Electronically Signed On 07-26-20 09:31:15 CDT by Rigo Benito
== END 2020-07-25 03:52 | disposition short-term general hospital (02) ==
LOC: ER 22:50
PROC: 30233N1 Transfusion of Nonautologous Red Blood Cells into Peripheral Vein, Percutaneous Approach (ICD-10-PCS; principal; 2020-07-25)
DX: D64.9 Anemia, unspecified (principal); E87.2 Acidosis; I10 Essential (primary) hypertension; E11.9 Type 2 diabetes mellitus without complications; Z88.5 Allergy status to narcotic agent
CPT/HCPCS: 93005; 85025; 80048; 36415 ×2; 86900; 83735; 86850; 85610; 86901; 82947; 83605; 84484; 83880; 71045; 36430 ×2; 99285; J1200; J2354; C9113; P9016 ×2; J7050 ×2; J7030